=== PATIENT | female | born 1960 | race Caucasian/White ===

== ENCOUNTER 2022-04-05 14:04 | Emergency (ER) | payer BC | END 2022-04-05 17:07 | disposition home or self-care (01) | LOC: JP.ED 14:04 | DX: U07.1 COVID-19 (principal); I48.91 Unspecified atrial fibrillation; Z88.0 Allergy status to penicillin; Z88.8 Allergy status to other drugs, medicaments and biological substances; Z88.1 Allergy status to other antibiotic agents; Z79.01 Long term (current) use of anticoagulants; Z79.899 Other long term (current) drug therapy | CPT/HCPCS: 99281; 99284; U0002 ==